=== PATIENT | female | born 1985 | race Caucasian/White ===

== ENCOUNTER 2021-10-12 00:42 | Emergency (ER) | payer OTHER ==
[2021-10-12 02:06] LABS: BASOPHIL 0.7 % (0-2); EOSINOPHIL 1.2 % (0-5); HGB 12.1 g/dl (12.5-16.0); MCH 29.2 pg (25.0-31.0); MCHC 33.6 g/dL (32.0-36.0); MCV 86.7 fL (78.0-100.0); MONOCYTE 6.6 % (0-12); MPV 9.2 fL (6.0-9.5); NEUTROPHIL 64.4 % (41-80); NRBC 0; PLT 215 K/uL (150-400); RBC 4.15 M/uL (4.20-5.40); RDW 12.1 % (11.5-14.0); WBC 7.7 K/uL (4.0-10.5)
[2021-10-12 02:32] LABS: ALBUMIN 3.7 g/dL (3.4-5.0); BILIRUBIN - TOTAL 0.3 mg/dL (0.2-1.0); CREATININE 0.7 mg/dL (0.51-0.95); GLOBULIN (CALCULATION) 2.9 g/dL; POTASSIUM 3.9 mmol/L (3.5-5.1); TOTAL PROTEIN 6.6 g/dL (6.4-8.2)
[2021-10-12 03:57] LABS: BILIRUBIN NEGATIVE (NEGATIVE); BLOOD NEGATIVE Ery/uL (NEGATIVE); CLARITY CLEAR (CLEAR); COLOR YELLOW (YELLOW); GLUCOSE (U) NORMAL (NORMAL); LEUKOCYTES NEGATIVE Leu/uL (NEGATIVE); NITRITE NEGATIVE (NEGATIVE); PROTEIN NEGATIVE (NEGATIVE); SPECIFIC GRAVITY >=1.030 (1.001-1.030); UROBILINOGEN 0.2 mg/dL (0.2-1.0)
[2021-10-12] MEDS ORDERED: IBUPROFEN800 MG PO (04:41)
== END 2021-10-12 05:02 | disposition home or self-care (01) ==
LOC: FER 00:42
PROVIDERS: Emergency Medicine Emergency Medical Services
DX: N83.201 Unspecified ovarian cyst, right side (principal)
CPT/HCPCS: 36415; 80053; 81003; 85025; Q9967